=== PATIENT | female | born 2000 | race Caucasian/White ===

== ENCOUNTER 2019-07-09 20:10 | Emergency (ER) | payer OTHER ==
[~2019-07-09 20:10] MED LIST: ESCI20TA38 PO; OMEP40CA48 PO; PROP10TA58 PO; SUCR1TAB85 PO
[2019-07-09] MEDS ORDERED: LORA10CA3 PO (20:20)
[2019-07-09] MEDS ORDERED: BIRTH CONTROL (20:20)
--- NOTE | 2019-07-09 20:20 | ER Report ---
History and Physical Time Seen By MD: 20:15 Hx. of Stated Complaint: PT REPORTS DIFFICULTY BREATHING X5DAYS, STATES FEELS LIKE "THROAT IS CLOSING" WHEN EATING ANYTHING HPI/ROS CHIEF COMPLAINT: Shortness of breath HISTORY OF PRESENT ILLNESS: Patient is a 19 yo F here c/o shortness of breath that has been pretty consistent over the last 5 days. Hasn't tried anything to make it better. It can worsen while sitting or after eating and is not exercise induced. Patient had similar symptoms to this last year around the same time of year. She was given an inhaler last year which improved her symptoms. She no longer has this inhaler. Patient denies any seasonal allergies or allergies to food. Denies any history of asthma. Denies headaches or chest pain. Does feel a tightness in the center of her chest with deep breathes and does feel dizzy transiently. REVIEW OF SYSTEMS: Respiratory: No cough, no dyspnea, SOB Cardiovascular: No chest pain, no palpitations. Gastrointestinal: No vomiting, no abdominal pain. Musculoskeletal: No back pain. Allergies: Coded Allergies: No Known Drug Allergies (Unverified , 07/09/19) Home Meds Reported Medications Loratadine (CLARITIN) 10 Mg Capsule, 10 MG PO, CAPSULE 07/09/19 [ Control] No Conflict Check 07/09/19 Discontinued Reported Medications Propranolol Hcl (PROPRANOLOL HCL) 10 Mg Tablet, 10 MG PO BID 10/09/16 Escitalopram Oxalate (LEXAPRO) 20 Mg Tablet, 10 MG PO QDAY, TAB 10/09/16 Discontinued Scripts Omeprazole (OMEPRAZOLE) 40 Mg Capsule.dr, 40 MG PO QDAY, #30 CAP Prov:JANY MA [facility] 10/09/16 Sucralfate (CARAFATE) 1 Gm Tablet, 1 GM PO QID, #60 TAB Take before meals and at bedtime. Crush the tablet and mix with water before taking. Prov:JANY MA 10/09/16 Past Medical/Surgical History Past medical Hypercholesterolemia, asthma allergy induced, anxiety history of surgery on left ACL No family history pertinent Reviewed Nurses Notes: Yes Hx Substance Use Disorder: No Hx Alcohol Use: No Constitutional Vital Sign - Last 24 Hours 07/09/19 07/09/19 07/09/19 20:15 20:35 20:35 Temp 98.0 Pulse 79 79 Resp 24 16 B/P (MAP) 135/87 Pulse Ox 100 98 O2 Delivery Room Air Room Air Physical Exam General Appearance: The patient is alert, has no immediate need for airway protection and no current signs of toxicity. Eyes: Pupils equal and round no injection. Respiratory: Chest is non tender, lungs are clear to auscultation. Cardiac: regular rate and rhythm Gastrointestinal: Abdomen is soft and non tender, no masses, bowel sounds normal. Musculoskeletal: Neck: Neck is supple and non tender. Extremities have full range of motion and are non tender. Skin: No rashes or lesions. DIFFERENTIAL DIAGNOSIS: After history and physical exam differential diagnosis was considered for Allergy induced asthma, PE, pneumonia, costochondritis, anxiety Medical Decision Making Data Points Result Diagram: 07/09/19202707/09/192027 Laboratory Hematology Test 07/09/19 20:28 White Blood Count 8.1 k/uL (4.5-11.0) Red Blood Count 4.49 M/uL (4.17-5.56) Hemoglobin 13.9 g/dL (12.0-16.0) Hematocrit 39.9 % (34.0-47.0) Mean Corpuscular Volume 88.8 fL (80.0-96.0) Mean Corpuscular Hemoglobin 30.9 pg (26.0-33.0) Mean Corpuscular Hemoglobin Concent 34.7 g/dL (32.0-36.0) Red Cell Distribution Width 12.4 % (11.5-14.5) Platelet Count 289 K/uL (150-450) Mean Platelet Volume 9.5 fL (7.2-11.1) Neutrophils (%) (Auto) 49.3 % (39.4-72.5) Lymphocytes (%) (Auto) 37.8 % (17.6-49.6) Monocytes (%) (Auto) 9.0 % (4.1-12.4) Eosinophils (%) (Auto) 3.3 % (0.4-6.7) Basophils (%) (Auto) 0.6 % (0.3-1.4) Nucleated RBC Relative Count (auto) 0.1 /100WBC Neutrophils # (Auto) 4.0 K/uL (2.0-7.4) Lymphocytes # (Auto) 3.1 K/uL (1.3-3.6) Monocytes # (Auto) 0.7 K/uL (0.3-1.0) Eosinophils # (Auto) 0.3 K/uL (0.0-0.5) Basophils # (Auto) 0.0 K/uL (0.0-0.1) Nucleated RBC Absolute Count (auto) 0.00 K/uL Chemistry Test 07/09/19 20:28 Sodium Level 138 mmol/L (137-145) Potassium Level 3.3 mmol/L (3.5-5.0) Chloride Level 105 mmol/L (98-107) Carbon Dioxide Level 23 mmol/L (22-31) Blood Urea Nitrogen 12 mg/dl (7-18) Creatinine 0.80 mg/dl (0.52-1.04) Glomerular Filtration Rate Calc > 60.0 Random Glucose 92 mg/dl (75-110) Calcium Level 8.8 mg/dl (8.4-10.2) Total Bilirubin 0.2 mg/dl (0.2-1.3) Aspartate Amino Transf (AST/SGOT) 21 U/L (0-35) Alanine Aminotransferase (ALT/SGPT) 24 U/L (0-56) Alkaline Phosphatase 80 U/L (0-126) Troponin I < 0.012 ng/ml Total Protein 7.3 g/dl (6.3-8.2) Albumin 3.9 g/dl (3.5-5.0) Human Chorionic Gonadotropin, Qual Negative (NEGATIVE) Coagulation Test 07/09/19 20:28 D-Dimer Quantitative (PE/DVT) < 0.27 ug/ml (0-0.50) EKG/Imaging EKG Interpretation 12 lead EKG: Rhythm: normal sinus rhythm [place]: normal QRS: normal ST segments: normal Imaging CHEST PA LAT COMPARISONS: None. ADDITIONAL PERTINENT HISTORY: Cough with shortness of breath FINDINGS: Cardiomediastinal silhouette: Negative. Pulmonary vasculature: Negative. Lung caballero: Negative. Pleural spaces: Negative. Osseous structures: Negative. Surrounding soft tissues: Negative. IMPRESSION: No evidence of acute cardiopulmonary disease. Report Dictated By: Iker Waldrop MD at 07/09/2019 9:31 PM Report E-Signed By: Iker Waldrop MD at 07/09/2019 9:31 PM WSN:[id number] ED Course/Re-evaluation ED Course Patient presented to ED with shortness of breath for the last 5 days. She had s ymptoms similar to this last year at the same time of year. She was given an inhaler which improved her shortness of breath. Physical exam was within normal limits with no wheezes or chest pain to pressure. Differential diagnoses were considered. IV was started, EKG, Chest XR, CBC, CMP, Troponin, D-Dimer and HCG were ordered. No acute findings were seen. Patient was given a breathing treatment with albuterol and ipratropium. Patient's status improved. Patient understood her diagnosis of allergy induced asthma and was given an albuterol inhaler to use at home. Discharged with instructions to follow up with PCP and return to ED if breathing suddenly worsens. Decision to Disposition Date: Jul 09, 2019 Decision to Disposition Time: 21:43 Depart Departure Latest Vital Signs Vital Signs Date Time Temp Pulse Resp B/P (MAP) Pulse Ox O2 Delivery O2 Flow Rate FiO2 07/09/19 20:35 98 Room Air 07/09/19 20:35 79 16 07/09/19 20:15 98.0 135/87 Impression: Primary Impression: Allergy-induced asthma Condition: Improved Disposition: HOME OR SELF-CARE Patient Instructions: Asthma (ED) Additional Instructions: Continue taking Claritin. Use 2 puffs of the albuterol inhaler every 4-6hours for shortness of breath. Follow up with primary care provider. Return to ED if breathing worsens. Problem Qualifiers Primary Impression: Allergy-induced asthma Asthma severity: mild Asthma persistence: intermittent Asthma complica tion type: uncomplicated Qualified Codes: J45.20 - Mild intermittent asthma, uncomplicated JANY MA [facility] Jul 09, 2019 20:20
[2019-07-09] MEDS ORDERED: NS(*) 0.9% 1000 ML BAG 1,000 ML IV ONE (20:24)
[2019-07-09] MEDS ORDERED: ALBUTEROL/IPRATROPIUM 3 ML NEB NEB ONE (20:25)
--- NOTE | 2019-07-09 20:55 | EKG ---
FACILITY: [facility] [place] PATIENT NAME: VINAYAK GILES : [id number] MR: [id number]: [id number] EXAM DATE: ORDERING PHYSICIAN: JANY MA TECHNOLOGIST: CHANTAL Test Reason : CP/ SOB Blood Pressure : / mmHG Vent. Rate : 078 BPM Atrial Rate : 078 BPM P-R Int : 152 ms QRS Dur : 080 ms QT Int : 378 ms P-R-T Axes : 052 064 031 degrees QTc Int : 430 ms Normal sinus rhythm Normal ECG No previous ECGs available Confirmed by SINTIA CHIRINOS ([id number]) on 07/09/2019 10:05:05 PM Referred By: Confirmed By:SINTIA CHIRINOS
[2019-07-09 21:18] LABS: PLATELET COUNT, AUTOMATED 289 K/uL (150-450)
[2019-07-09 21:30] VITALS: BP 100/82
--- NOTE | 2019-07-09 21:39 | RADIOLOGY IMAGING REPORT ---
FACILITY: [facility] PATIENT NAME: Tony Rocha : 2000 MR: [id number] V: [id number] EXAM DATE: ORDERING PHYSICIAN: JANY MA TECHNOLOGIST: Location: [facility] [place] Patient: Tony Rocha : 2000 Visit/Account:[id number] Date of Sevice: 07/09/2019 CHEST PA LAT COMPARISONS: None. ADDITIONAL PERTINENT HISTORY: Cough with shortness of breath FINDINGS: Cardiomediastinal silhouette: Negative. Pulmonary vasculature: Negative. Lung caballero: Negative. Pleural spaces: Negative. Osseous structures: Negative. Surrounding soft tissues: Negative. IMPRESSION: No evidence of acute cardiopulmonary disease. Report Dictated By: Iker Waldrop MD at 07/09/2019 9:31 PM Report E-Signed By: Iker Waldrop MD at 07/09/2019 9:31 PM WSN:[id number]
[2019-07-09] MEDS ORDERED: ALBUTEROL 8 GM INHALER INH ONE (21:45)
== END 2019-07-09 21:59 | disposition home or self-care (01) ==
LOC: ER 20:23
DX: J45.20 Mild intermittent asthma, uncomplicated (principal)
CPT/HCPCS: 71046; 84484; 84703; 85025; 85379; 93005; 94640; 96360; 99284; J7030; J7620; 82040; 82247; 82310; 82374; 82435; 82565; 82947; 84075; 84132; 84155; 84295; 84450; 84460; 84520; 99283